=== PATIENT | male | born 1985 | race Caucasian/White ===

== ENCOUNTER 2016-07-24 11:18 | Emergency (ER) | payer OTHER | END 2016-07-24 13:06 | disposition home or self-care (01) | LOC: FER 11:18 | DX: S96.911A Strain of unspecified muscle and tendon at ankle and foot level, right foot, initial encounter (principal); R26.2 Difficulty in walking, not elsewhere classified; Z98.890 Other specified postprocedural states; X50.1XXA Overexertion from prolonged static or awkward postures, initial encounter | CPT/HCPCS: 73630; 99283 ==